=== PATIENT | female | born 1950 | race Caucasian/White ===

== ENCOUNTER 2019-12-26 08:41 | Emergency (ER) | payer MEDICARE, MEDICAID ==
[~2019-12-26] VITALS: Ht 170.2 cm; Wt 59.1 kg
[2019-12-26 09:13] LABS: HEMATOCRIT 40.2 % (37.0-47.0); HEMOGLOBIN 12.6 g/dl (12.0-16.0); IMMATURE GRANULOCYTES 0.5 % (0.0-5.0); MEAN CELL VOLUME 94.1 fL CALC (80.0-100.0); MEAN CORPUSCULAR HGB 29.5 pG CALC (26.0-32.0); MEAN CORPUSCULAR HGB CONC 31.3 g/dL CAL (32.0-36.0); NEUT# 8.21 thou/uL (2.00-7.15); RED BLOOD COUNT 4.27 mill/uL (4.20-5.60); RED CELL DISTRI WIDTH 12.5 % (11.5-15.5)
[2019-12-26 09:42] LABS: ANION GAP 12 (6-22 (CALC)); BUN 23 mg/dL (8-23); BUN/CREATININE RATIO 26 (12-20 (CALC)); CARBON DIOXIDE 26 mmol/l (22-30); CHLORIDE 105 mmol/l (95-108); CREATININE 0.9 mg/dL (0.5-1.0); GFR > 60 ML/MIN (>=60 (CALC)); GFR FOR AFR.AMER. > 60 ML/MIN (>=60 (CALC)); POTASSIUM 3.9 mmol/l (3.5-5.1); SODIUM 139 mmol/l (137-146)
[2019-12-26 10:43] VITALS: BP 146/75
== END 2019-12-26 10:55 | disposition left against medical advice (07) ==
LOC: ED 08:41
PROVIDERS: Family Medicine
DX: S72.141A Displaced intertrochanteric fracture of right femur, initial encounter for closed fracture (principal); W19.XXXA Unspecified fall, initial encounter; Z91.19 Patient's noncompliance with other medical treatment and regimen

== ENCOUNTER 2020-01-02 11:09 | Inpatient (IN) | payer MEDICARE, MEDICAID ==
[~2020-01-02] VITALS: Ht 170.2 cm; Wt 70.3 kg
--- NOTE | 2020-01-02 11:09 | NUR ---
PATIENT IMMEDIATELTY TO ROOM BY EMS. PATIENT NOT WANTING TO REMOVE HER CLOTHING OR DO ANYTHING FOR HERSELF. PATIENT REQUESTING TO HAVE ALL OF HER CLOTHING CUT OFF. PATIENT REFUSING TO LEAN FORWARD TO REMOVE SHIRT BUT WANTS IT CUT OFF. MD NOTIFIED OF PATIENT STATUS
[2020-01-02 12:08] LABS: HEMOGLOBIN 13.5 g/dl (12.0-16.0); IMMATURE GRANULOCYTES 0.9 % (0.0-5.0); MEAN CELL VOLUME 93.5 fL CALC (80.0-100.0); MEAN CORPUSCULAR HGB 29.3 pG CALC (26.0-32.0); MEAN CORPUSCULAR HGB CONC 31.4 g/dL CAL (32.0-36.0); NEUT# 12.21 thou/uL (2.00-7.15); RED BLOOD COUNT 4.6 mill/uL (4.20-5.60); RED CELL DISTRI WIDTH 12.7 % (11.5-15.5)
[2020-01-02 12:27] LABS: ANION GAP 13 (6-22 (CALC)); BUN 33 mg/dL (8-23); BUN/CREATININE RATIO 50 (12-20 (CALC)); C-REACTIVE PROTEIN 3.6 mg/dL (0-0.9); CARBON DIOXIDE 25 mmol/l (22-30); CHLORIDE 107 mmol/l (95-108); CREATININE 0.7 mg/dL (0.5-1.0); GFR > 60 ML/MIN (>=60 (CALC)); GFR FOR AFR.AMER. > 60 ML/MIN (>=60 (CALC)); POTASSIUM 3.6 mmol/l (3.5-5.1); SODIUM 142 mmol/l (137-146)
--- NOTE | 2020-01-02 12:30 | NUR ---
PT INCONTINENT MOD AMT STOOL. ANJELICA AREA CLEANSED. BED LINENS CHANGED. PT TOLERATED WITH MODERATE AMT PAIN.
[2020-01-02 13:07] LABS: URINE BLOOD DIPSTICK LARGE (NEGATIVE); URINE GLUCOSE - DIPSTICK NEGATIVE (NEGATIVE); URINE KETONE NEGATIVE (NEGATIVE); URINE LEUK ESTERASE NEGATIVE (NEGATIVE); URINE PROTEIN - DIPSTICK 100 mg/dL (NEG-TRACE); URINE SPECIFIC GRAVITY >=1.030; URINE UROBILINOGEN - DIPSTICK 0.2 E.U./dL (0.2)
[2020-01-02 13:09] LABS: URINE BILIRUBIN - DIPSTICK SMALL (NEGATIVE); URINE COLOR BROWN; URINE NITRITE - DIPSTICK POSITIVE (Negative)
[2020-01-02 13:11] LABS: URINE BACTERIA MANY hpf; URINE EPITHELIAL CELLS MODERATE EPI/hpf (0-FEW); URINE MUCUS MODERATE hpf (NONE-FEW)
--- NOTE | 2020-01-02 13:15 | NUR ---
MD AT BEDSIDE TO DISCUSS RESULTS AND POC.
--- NOTE | 2020-01-02 13:20 | NUR ---
AT BEDSIDE TO DISCUSS TRANSFER TO [facility] FOR HIP INJURY. PT REFUSED TRANSFER BUT DID AGREE TO BE ADMITTED TO THIS FACILITY FOR TREATMENT FOR UTI AND DVT.
--- NOTE | 2020-01-02 14:15 | NUR ---
COVID SWAB COLLECTED, ISOLATION PRECAUTIONS INITIATED.
--- NOTE | 2020-01-02 15:27 | NUR ---
NURSE TO NURSE REPORT CALLED TO [facility].
--- NOTE | 2020-01-02 15:45 | NUR ---
TO ROOM 262 VIA STRETCHER, TRANSFERRED TO BED WITH MAX ASSIST. PT TOLERATED WITH MODERATE AMT PAIN.
--- NOTE | 2020-01-02 15:50 | NUR ---
PT ARRIVED FROM ER VIA STRETCHER WITH STAFF. 4 PEOPLE TO TRANSFER TO THE BED. WITH SLIDER. IV SITE AND TELE MONITOR IN PLACE.
--- NOTE | 2020-01-02 16:10 | NUR ---
ASSESSMENT IS COMPLETED: IV SITE IS FREE FROM REDNESS OR EDEMA. HR IS REG,PULSES ARE STRONG X4, ABD IS SOFT WITH ACTIVE BS. BREATH SOUNDS ARE CLEAR BILATERALLY, PT IS A 2 PERSON ASSIST, HAS SCRATCHES AND A RASH ON BOTH HIPS AND THIGHS. R LEG IS SWOLLEN +3 EDEMA NOTED. WITH RED, AND DARK COLOR WARM TO THE TOUCH. PT HOLLARS WITH EVERY MOVEMENT. IS VERY STIFF. USES THE BED PATEL. HAD A PREVIOUS R HIP FX, DENIES PAIN. ONLY ON R KNEE. TELE MONITOR IN PLACE.
[2020-01-02 16:30] VITALS: BP 143/76
--- NOTE | 2020-01-02 19:10 | NUR ---
REPORT FROM [facility]. PT RESTING IN BED WITH EYES CLOSED. NO APPARENT DISTRESS NOTED. RESPIRATIONS EVEN AND UNLABORED. PURWIK IN PLACE. CALL LIGHT WITHIN REACH. WILL CONTINUE TO MONITOR.
[2020-01-02 20:00] VITALS: BP 136/72
--- NOTE | 2020-01-02 21:24 | NUR ---
PT MEDICATED ORDERED. ENCOURAGED ELEVATION OF RLE. PT REFUSED. PT C/O PAIN OFFERED PRN APAP, PT ALSO REFUSED. NO APPARENT DISTRESS NOTED. CALL LIGHT WITHIN REACH. WILL CONTINUE TO MONITOR.
--- NOTE | 2020-01-03 00:18 | NUR ---
PT RESTING IN BED WITH EYES CLOSED. NO APPARENT DISTRESS NOTED. PURWIK IN PLACE FUNCTIONING PROPERLY. ATHLETIC DIRECTOR IN PLACE. CALL LIGHT WITHIN REACH. WILL CONTINUE TO MONITOR.
--- NOTE | 2020-01-03 04:20 | NUR ---
PTS ROOM MOVED CLOSER TO NURSES STATION FOR SAFETY PRECAUTIONS. PT HAS HX OF FALLS. WILL CONTINUE TO MONITOR.
[2020-01-03 05:20] VITALS: BP 124/68
[2020-01-03 05:40] LABS: HEMATOCRIT 39.8 % (37.0-47.0); HEMOGLOBIN 12.5 g/dl (12.0-16.0); IMMATURE GRANULOCYTES 1.1 % (0.0-5.0); MEAN CELL VOLUME 94.3 fL CALC (80.0-100.0); MEAN CORPUSCULAR HGB 29.6 pG CALC (26.0-32.0); MEAN CORPUSCULAR HGB CONC 31.4 g/dL CAL (32.0-36.0); NEUT# 7.89 thou/uL (2.00-7.15); RED BLOOD COUNT 4.22 mill/uL (4.20-5.60); RED CELL DISTRI WIDTH 12.9 % (11.5-15.5)
[2020-01-03 05:53] LABS: ALBUMIN 3.5 g/dL (3.2-5.0); ALKALINE PHOSPHATASE 119 u/l (38-126); ANION GAP 11 (6-22 (CALC)); BILIRUBIN, TOTAL 0.6 mg/dL (0.0-1.4); BUN 28 mg/dL (8-23); BUN/CREATININE RATIO 46 (12-20 (CALC)); CARBON DIOXIDE 25 mmol/l (22-30); CHLORIDE 108 mmol/l (95-108); CREATININE 0.6 mg/dL (0.5-1.0); GFR > 60 ML/MIN (>=60 (CALC)); GFR FOR AFR.AMER. > 60 ML/MIN (>=60 (CALC)); POTASSIUM 3.9 mmol/l (3.5-5.1); SGOT/AST 73 u/l (9-36); SODIUM 140 mmol/l (137-146); TOTAL PROTEIN 6.6 g/dL (6.3-8.2)
--- NOTE | 2020-01-03 08:00 | NUR ---
ASSESSMENT IS COMPLETED: IV SITE IS FREE FROM REDNESS OR EDEMA. HR IS REG,PULSES ARE STRONG . +3 PITTING EDEMA NOTED ON R FOOT. TELE #[id number] BREATH SOUNDS ARE CLEAR BILATERALLY. CONTINUE TO OSBERVE AND MONITOR..
[2020-01-03 10:59] VITALS: BP 110/53
--- NOTE | 2020-01-03 12:45 | NUR ---
PT IS RELAXING IN BED ,NOT WANTING TO MOVE WITHOUT SCREAMING DUE TO PAIN. WILL NOT TAKE MEDICATIONS FOR PAIN.
[2020-01-03 14:45] VITALS: BP 115/60
--- NOTE | 2020-01-03 16:45 | NUR ---
PT REMAINS RELAXING IN BED WITH NO DISTRESS NOTED. IV SITE IS FREE FROM REDNESS OR EDEMA. ENCOURAGING TO DRINK FLUIDS DUE TO DARK URINE. PUREWICK CATHTER IN PLACE.
--- NOTE | 2020-01-03 19:25 | NUR ---
PT SITTING UPRIGHT IN BED, DENIES NEED FOR REPOSITIONING, STATES SHE IS USED TO SLEEPING SITTING UPRIGHT. CALL LIGHT IN HAND, DENIES ANY NEEDS AT THIS TIME.
[2020-01-03 20:00] VITALS: BP 116/68
--- NOTE | 2020-01-03 20:45 | NUR ---
PT SITTING IN HIGH FOWLERS POSITION IN THE BED WITH LIGHTS AND TV OFF. SHE DENIES PAIN, REPORTS FEELING MUCH BETTER THAN PREVIOUSLY. 3+PITTING EDEMA TO RLE AND REDNESS. PUREWICK IS IN PLACE, URINE OUTPUT OF 400CC OF DARK TEA COLORED URINE IN CANISTER AT THIS TIME. PT LOCX4, DENIES ANY DISTRESS AT THIS TIME. ASSESSMENT COMPLETED AND MEDICATIONS ADMINISTERED PM ORDERS PROVIDE. SNACK OFFERED/DENIED. CALL LIGHT AT SIDE AND PT ENCOURAGED TO CALL NEEDS ARISE.
[2020-01-04] VITALS: BP 117/75
--- NOTE | 2020-01-04 02:17 | NUR ---
PT SLEEPING IN HIGH FOWLERS POSITION, DID NOT AWAKE TO MY ENTERING ROOM. NO S/O DISTRESS NOTED. DOOR OPEN, LIGHTS AND TV ARE OFF.
[2020-01-04 04:00] VITALS: BP 126/76
--- NOTE | 2020-01-04 04:54 | NUR ---
PUREWICK CANISTER EMPTIED OF 550CC OF DARK LISBETH CLEAR URINE AT THIS TIME. NO S/O DISTRESS NOTED. PT SLEEPING UPRIGHT IN BED, OPENED HER EYES I ENTERED THE ROOM, BUT PROMPTLY RETURNED BACK TO SLEEP.
[2020-01-04 07:55] VITALS: BP 158/78
--- NOTE | 2020-01-04 07:55 | NUR ---
ASSESSMENT IS COMPLETED: IV SITE IS FREE FROM REDNESS OR EDEMA. HR IS REG,PULSES ARE STRONG X4, ABD IS SOFT WITH ACTIVE BS. BREATH SOUNDS ARE CLEAR,BILATERALLY,. +3 EDEMA NOTED ON R LEG AND FOOT. HAD A LARGE BM.
--- NOTE | 2020-01-04 10:15 | NUR ---
PT WAS INFORMED OF NEEDING TO HAVE SURGERY ON HER R HIP. VERBALIZED UNDERSTANDING "WOULD LIKE TO HAVE HERE" EXPLAINED RE: OTHER MD IS IN [facility]. VERBALIZED UNDERSTANDING.
[2020-01-04 10:25] VITALS: BP 129/78
--- NOTE | 2020-01-04 12:45 | NUR ---
PT IS RELAXING IN BD WITH NO DISTRESS NTED. IV SITE IS FREE FROM REDNESS OR EDEMA.
--- NOTE | 2020-01-04 16:00 | NUR ---
PT IS RESTING IN BED WITH NO DISTRESS NOTED. IV SITE IS FREE FROM REDNESS OR EDEMA.
[2020-01-04 16:05] VITALS: BP 147/79
--- NOTE | 2020-01-04 17:14 | NUR ---
SPOKE WITH SAM AT [facility]. FOR TRANSPORT ON PT. WILL BE IN APPROXIMATELY 2 HRS DUE TO ER IS TRANSPORTING NOW.
--- NOTE | 2020-01-04 17:33 | NUR ---
INFORMING [facility] RE: ETA OF PT ARRIVAL. JAE HEIN. WILL HAVE THE NEXT SHIFT GIVE REPORT ON PT DEPARTURE.
--- NOTE | 2020-01-04 18:14 | NUR ---
SPOKE WITH DR TREVIÑO, RE: PT IS REFUSING TO GO. HE SPOKE WITH PT RE: TRANSFER. PT INSISITING ON AN MRI. TO GET THE FULL PICTURE OF HER INSIDES. SHE DOESNOT FEEL COMFORTABLE ABOUT GOING TO [facility], SHE HAS LEGAL ISSUES THAT HAPPENED A WHILE BACK. ADAMASTRIDY REFUSING TO GO. DR TREVIÑO WILL CONTINUE TO CALL DR ARANDA. AND ASKED ME TO CANCEL TRANSFER.
--- NOTE | 2020-01-04 18:30 | NUR ---
CALLED [facility] AND [facility] TO CANCEL THE TRANSFER PER PTS REQUEST. PT WAS COUNCILED ON THE REASON FOR THE TRANSFER BECAUSE OF THE BREAK ON HER HIP. INQUIRED WITH STAFF AND DR. TREVIÑO " WOULD U WANT TO HAVE TO TRAVEL 50 MILES TO ANOTHER HOSPITAL BECAUSE OF THE BLOOD CLOT?" EXPLAINED IF IT WAS NECESSARY THEN YES. STOPPED THE TRANSFER PER DR TREVIÑO AND THE PT.
--- NOTE | 2020-01-04 19:50 | NUR ---
PT AWAKE RESTING IN BED. PT IS ALERT AND ORIENTED X4. RESP EVEN AND UNLABORED. SKIN WARM AND DRY. LUNGS CLEAR BILAT. ABD SOFT AND NONDISTENDED WITH BOWEL SOUNDS PRESENT. +2 RT LOWER EXT EDEMA NOTED. PEDAL PULSES PALPATED BILAT. RT LOWER EXT IS RED AND SLIGHTLY WARM TO TOUCH . PT DENIES ANY PAIN OR DISCOMFORT. TELE SR 86 WITH PVC'S PER E.D. PT ASSISTED WITH REPOSITIONING. FREQUENT ROUNDS MADE. CALL BEL WITHIN REACH.
[2020-01-04 21:00] VITALS: BP 158/88
--- NOTE | 2020-01-04 22:07 | NUR ---
[facility] CALLING INQUIRING ABOUT PT PLANNED TRASNFER, INFORMED THEM OF PT'S REFUSAL A THIS TIME, SHE (JOEY) WITHDREW THE TRANSFER.
--- NOTE | 2020-01-04 22:15 | NUR ---
PT AWAKE RESTING IN BED. RESP EVEN AND UNLABORED. NO DISTRESS NOTED. HEPLOCK PATENT. DENIES ANY DISCOMFORT. FREQUENT ROUNDS MADE. CALL LUI WITHIN REACH.
[2020-01-05] VITALS (7 sets, daily range): BP systolic 131–158; BP diastolic 74–84
--- NOTE | 2020-01-05 00:30 | NUR ---
RESTING IN BED WITH EYES CLOSED. RESP EVEN AND UNLABORED. NO DISTRESS NOTED. CALL LUI WITHIN REACH.
--- NOTE | 2020-01-05 04:30 | NUR ---
PT AWAKE RESTING IN BED. RESP EVEN AND UNLABORD. HEPLOCK IS PATENT. PUREWICK IN PLACE DRAINING CLEAR LISBETH URINE. PT DENIES ANY DISCOMFORT. ASSISTED WITH REPOSITIONING. TELE INTACT. FREQUENT ROUNDS MADE. CALL LUI WITHIN REACH.
--- NOTE | 2020-01-05 08:25 | NUR ---
ASSESSMENT IS COMPLETED: IV SITE IS FREE FROM REDNESS OR EDEMA. HR IS REG,PULSES ARE STRONG X4, ABD IS SOFT WITH ACTIV EBS. BREATH SOUNDS ARE CLEAR BILATERALLY. + 2 PITTING EDEMA NOTED ON R FOOT. IS LOOKING BETTER TODAY. PT INSISTING ON GETTING AN MRI. TELE MONITOR # [id number] READING STT WITH PVC AT 94
--- NOTE | 2020-01-05 11:52 | NUR ---
PT C/O PUREWICK NOT WORKING WELL. INFORMED THAT IT IS WORKING HER URINE IS BETTER. LISBETH VS BROWN,
--- NOTE | 2020-01-05 12:40 | NUR ---
PT IS RELAXNG IN BED AND STATED" I DONT THINK THE PUREW ICK IS WORKING , DUE TO NOT HEARING THE SUCTION " INQUIRED IF HER PAD WAS WET. STATED "NO" THEN THE PUREWICK IS WORKING. CONTINUE TO OSBERVE AND MONITOR.
--- NOTE | 2020-01-05 15:43 | NUR ---
SPOKE WITH PT RE: URINE. LOOKING BETTER . NOT BROWN WHEN SHE CAME IN. MORE OUTPUT.
--- NOTE | 2020-01-05 16:50 | NUR ---
PT IS RELAXING IN BED HAS A BETTER OUTPUT WITH URINE TODAY. IV SITE IS FREE FROM REDNESS OR EDEMA.
--- NOTE | 2020-01-05 19:56 | NUR ---
PT RESTING IN BED, NO SIGNS OF DISTRESS NOTED, RESP EVEN AND UNLABORED. PT ALERT AND ORIENTED X3, DISCUSSED POC, VERBALIZED UNDERSTANDING. NOTED ABRASION TO NOSE, PT STATES FROM SKIN BX YRS AGO, PT HAS PURE WICK IN PLACE, ASSESSMENT COMPLETED, CALL LIGHT IN REACH,CONTINUE TO MONITOR.
[2020-01-06] VITALS: BP 137/81
--- NOTE | 2020-01-06 | NUR ---
PT RESTING IN BED, VITALS OBTAINED, PT VOICES NO NEEDS OR COMPLAINTS AT THIS TIME. CALL LIGHT IN REACH,CONTINUE TO MONITOR.
[2020-01-06 04:00] VITALS: BP 143/85
--- NOTE | 2020-01-06 04:00 | NUR ---
PT RESTING IN BED NO SIGNS OF DISTRESS NOTED, RESP EVEN AND UNLABORED. PT VOICES NO NEEDS OR COMPLAINTS AT THIS TIME. CALL LIGHT IN REACH,CONTINUE TO MONITOR.
--- NOTE | 2020-01-06 07:00 | NUR ---
REPORT RECEIVED FROM JULES ATWOOD.
[2020-01-06 08:59] VITALS: BP 112/63
--- NOTE | 2020-01-06 09:00 | NUR ---
PT RESTING IN SEMI FOWLERS POSITION,A&O X3;VS OBTAINED AND ASSESSMENT COMPLETED;PT DENIES ANY CURRENT PAIN OR DISCOMFORTS,PAIN SCALE AND REPORTING EDUCATED;RESPIRATIONS EVEN AND UNLABORED ON RA,CLEAR LUNG SOUNDS;ABDOMEN SOFT ON PALPATION AND ACTIVE IN ALL 4 QUADRANTS;WEAK PEDAL PULSES;PT DX WITH RT FEMORAL NECK FRACTURE, RIGHT LEG REDDENED AND SWOLLEN;TELE MONITORING IN PLACE;#20G TO RAC FLUSHED AND PATENT,ABX STARTED AT THIS TIME PER ORDER;PUREWICK CATHETER IN PLACE DRAINING YELLOW URINE WITH EASE;PT DENIES ANY ADDITIONAL NEEDS AND IS ENCOURAGED TO CALL FOR ASSISTANCE IF NEEDED;FALL PRECAUTIONS IN PLACE WITH BED IN THE LOWEST POSITION AND CALL LIGHT IN REACH;WILL CONTINUE TO MONITOR
--- NOTE | 2020-01-06 11:45 | NUR ---
SHARDA SNOWDEN, RISK MANAGEMENT AT BEDSIDE
[2020-01-06 12:00] VITALS: BP 130/84
--- NOTE | 2020-01-06 12:30 | NUR ---
PT RESTING IN SEMI FOWLERS POSITION;RESPIRATIONS EVEN AND UNLABORED ON RA;PT DENIES ANY CURRENT PAIN OR DISCOMFORTS;IV SITE REMAINS PATENT;TELE MONITORING IN PLACE;PT ENCOURAGED TO CALL FOR ASSISTANCE IF NEEDED;FALL PRECAUTIONS IN PLACE WITH BED IN THE LOWEST POSITION AND CALL LIGHT IN REACH;WILL CONTINUE TO MONITOR
[2020-01-06] MEDS ORDERED: ELIQUIS5 MG PO (14:18)
[2020-01-06 15:56] VITALS: BP 126/78
--- NOTE | 2020-01-06 15:56 | NUR ---
PT DISCHARGED AT THIS TIME TO [facility] VIA STRETCHER ACCOMPANIED BY [facility].IV SITE REMOVED WITH CATHETER INTACT.ALL BELONGINGS LEFT WITH PT.
--- NOTE | 2020-01-06 16:02 | NUR ---
REPORT CALLED TO ANGEL LUIS GARCIA AT [facility] AT THIS TIME.
== END 2020-01-06 15:56 | DRG 299 ==
LOC: ED 11:09 → ED-I 13:44 → ED 14:01 → MS2 14:02
PROVIDERS: Family Medicine; Nurse Practitioner Family; ADMIT Internal Medicine; ATTEND Internal Medicine
DX: I82.411 Acute embolism and thrombosis of right femoral vein (principal); S72.001A Fracture of unspecified part of neck of right femur, initial encounter for closed fracture; N39.0 Urinary tract infection, site not specified; I82.4Z1 Acute embolism and thrombosis of unspecified deep veins of right distal lower extremity; B96.20 Unspecified Escherichia coli [E. coli] as the cause of diseases classified elsewhere; W19.XXXA Unspecified fall, initial encounter; Z91.19 Patient's noncompliance with other medical treatment and regimen; Z20.828 Contact with and (suspected) exposure to other viral communicable diseases
CPT/HCPCS: J1650

== ENCOUNTER 2020-01-22 14:40 | Inpatient (IN) | payer MEDICARE, MEDICAID ==
[~2020-01-22] VITALS: Ht 170.2 cm; Wt 66.8 kg
[~2020-01-22 14:40] MED LIST: ELIQUIS5 MG PO
[2020-01-27] VITALS (10 sets, daily range): BP systolic 79–116; BP diastolic 46–56
--- NOTE | 2020-01-27 16:43 | NUR ---
PT ARRIVED TO [facility] ROOM 262 VIA BED ACCOMPAINED BY OR STAFF.INTRODUCED SELF TO PT AND DISCUSSED POC. PT IS A/O X3 BUT VERY DROWSY.VITALS AND ASSESSMENT COMPLETED. BP 129/62, HR 61, O2 98% ON 2L NC. RESPIRAITONS ARE EVEN AND UNLABORED WITH NO DISTRESS NOTED. LUNG SOUNDS ARE DIMINISHED. HEART RHYTHM IS NORMAL. BOWEL SOUNDS ARE HYPOACTIVE, LAST RPORTED BM IS UNKNOWN. RADIAL AND PEDAL PUSLES STRONG.SCD APPLIED TO LEFT LEG. #20G IN LFA RUNNING WITH LR AT 100ML/HR, SITE APPEARS HEALTHY AND PATENT. PT COMPLAINS OF 7/10 PAIN IN RIGHT HIP. PT POST OP TOTAL RIGHT HIP ARTHROPLASTY. DRESSING CDI AT THIS TIME. ICE APPLIED PER ORDER. ABDUCTION PILLOW IN PLACE. SKIN IS WARM AND DRY WITH NO BREAKDOWN NOTED. TRACE EDEMA LOCATED TO BILATERAL LOWER EXTREMITIES. WHEN KITCHEN AIDE COMPLETING ADMISION. PT CONTINUED TO FALL ASLEEP. PT DENIES ANY ALLERGIES, ALLERGY BAND APPLIED.I.S AT BEDSIDE. PT ORIENTED TO ROOM AND CALL LIGHT.ALL SAFETY PRECAUTIONS ARE IN PLACE WITH CALL LIGHT IN REACH. WILL CONTINUE TO MONITOR
--- NOTE | 2020-01-27 16:50 | NUR ---
PURE WHICK APPLIED. PT TOELRATING WELL.
--- NOTE | 2020-01-27 19:00 | NUR ---
REPORT RECEIVED FROM Walter CADET LPN, CARE OF PT ASSUMED AT THIS TIME.
--- NOTE | 2020-01-27 20:05 | NUR ---
PT SITTING UP IN BED, BLE ELEVATED. NIBP AT 192: 74/46mmHg MAP(57). PT IS DROWSY BUT WAKES EASILY TO VERBAL STIMULI AND ABLE TO ANSWERS QUESTIONS APPROPRIATELY. PHYSICAL ASSESMENT COMPLETE. R-HIP DRESSING CLEAN, DRY, AND INTACT. ICE PACK OVER DRESSING. WEDGE LEG ABDUCTION PILLOW IN PLACE BETWEEN LEGS. BLE + SENSATION, CIRCULATION, MOVEMENT. SCD TO LLE. SCHEDULED MEDICATIONS ADMINISTERED, SEE E-MAR. PT REPORTS ACHING PAIN TO R-HIP 04/22, DECLINES PRN ANALGESIC. PT ASSISTED TO REPOSITION FOR COMFORT. PLAN OF CARE REVIEWED. PT VERBALIZES UNDERSTANDING AND DENIES QUESTIONS. PT REQUEST ICE WATER BE REPLACED WITH ROOM TEMP WATER, DENIES FURTHER NEEDS. CALL LUI WITHIN REACH, AGREES TO CALL PRN.
--- NOTE | 2020-01-27 21:30 | NUR ---
NIBP RECHECK 94/50mmHg, MAP(65). PT DROWSY BUT EASILY ROUSABLE AND SPEECH APPROPRIATE. SEROQUEL AND STOOL SOFTENER HELD PER PTS REQUEST. DENIES FURTHER NEEDS AT THIS TIME. CALL LUI WITHIN REACH, AGREES TO CALL PRN.
--- NOTE | 2020-01-28 01:30 | NUR ---
PT APPEARS TO BE SLEEPING COMFORTABLY, LAYING IN BED WITH EYES CLOSED. NO APPARENT DISTRESS, RESPIRATIONS REGULAR AND UNLABORED. CALL LUI REMAINS WITHIN REACH.
[2020-01-28 04:00] VITALS: BP 83/53
[2020-01-28 04:52] LABS: HEMATOCRIT 34.1 % (37.0-47.0); HEMOGLOBIN 10.7 g/dl (12.0-16.0)
[2020-01-28 05:06] LABS: BUN 19 mg/dL (8-23); BUN/CREATININE RATIO 27 (12-20 (CALC)); CARBON DIOXIDE 27 mmol/l (22-30); CHLORIDE 105 mmol/l (95-108); CREATININE 0.7 mg/dL (0.5-1.0); GFR > 60 ML/MIN (>=60 (CALC)); GFR FOR AFR.AMER. > 60 ML/MIN (>=60 (CALC)); SODIUM 135 mmol/l (137-146)
--- NOTE | 2020-01-28 05:09 | NUR ---
PT WITH NO URINE OUTPUT, BLADDER SCAN REVEALS 487ML RESIDUAL URINE. PT DENIES FEELINGS OF URGENCY, PRESSURE, OR DISCOMFORT. PT REFUSES JOINER CATHETER INSERTION. STATES "I DONT WANT THAT, I'LL PEE EVENTUALLY. I PEE A LOT"
[2020-01-28 05:10] LABS: ANION GAP 8 (6-22 (CALC)); POTASSIUM 5.2 mmol/l (3.5-5.1)
--- NOTE | 2020-01-28 06:06 | NUR ---
PT VOIDING SMALL AMOUNTS, STATES "IM ALREADY GOING A LITTLE, BUT I KNOW MORE IS COMING", CON'T TO MONITOR OUTPUT.
--- NOTE | 2020-01-28 07:01 | NUR ---
REPORT RECEIVED FROM ANGEL LUIS OCONNOR. PT RESTING IN BED, NO S/S OF DISTRESS AT THIS TIME. SAFETY PRECAUTIONS IN PLACE. WILL CONITNUE TO MONITOR.
--- NOTE | 2020-01-28 08:11 | NUR ---
PT RESTING IN BED, ALERT AND ORIENTED. RESPIRATIONS ARE EVEN AND UNLABORED ON O2 @ 2L NC. LUNGS SOUND CLEAR. PEDAL PULSES ARE STONG. PT REPORTS HAVING PAIN WHEN SHE MOVES BUT AT THIS TIME IS NOT IN PAIN. SAFETY PRECAUTIONS IN PLACE. WILL CONTINUE TO MONITOR.
[2020-01-28 08:17] VITALS: BP 91/53
--- NOTE | 2020-01-28 11:50 | NUR ---
PATIENT ADAMANTLY REFUSED TO BE EVALUATED TODAY STATING THAT SHE DOES NOT WANT TO MOVE TODAY ESPECIALLY SHE JUST HAD HIP SURGERY. PT EDUCATED PATIENT ON HIP PROTOCOL WHERE WE NEED TO STAND AND WALK HER AFTER SURGERY. HOWEVER, SHE STILL ADAMANTLY REFUSED AND REQUESTED TO BE EVALUATED TOMORROW INSTEAD.
--- NOTE | 2020-01-28 12:35 | NUR ---
PT RESTING IN BED, NO S/S OF DISTRESS AT THIS TIME. SAFETY PRECAUTIONS IN PLACE. WILL CONTINUE TO MONITOR.
[2020-01-28 16:00] VITALS: BP 114/62
--- NOTE | 2020-01-28 16:10 | NUR ---
PT RESTING IN BED, WITH HEADBAND PULLED OVER HER NOSE, EYES CLOSED, PT APPEARS TO BE SLEEPING. RESPIRATIONS ARE EVEN AND UNLABORED, NO S/S OF DISTRESS AT THIS TIME. WILL CONTINUE TO MONITOR.
[2020-01-28 19:30] VITALS: BP 114/66
--- NOTE | 2020-01-28 20:40 | NUR ---
PT SITTING UP IN BED, PHYSICAL ASSESMENT COMPLETE. R-HIP DRESSING CLEAN, DRY, AND INTACT. ICE PACK OVER DRESSING. WEDGE LEG ABDUCTION PILLOW IN PLACE BETWEEN LEGS. BLE + SENSATION, CIRCULATION, MOVEMENT. SCD TO LLE. SCHEDULED MEDICATIONS ADMINISTERED, SEE E-MAR. PT REPORTS ACHING PAIN TO R-HIP 04/22, DECLINES PRN ANALGESIC. PT ASSISTED TO REPOSITION FOR COMFORT. PLAN OF CARE REVIEWED. PT VERBALIZES UNDERSTANDING AND DENIES QUESTIONS. PT REQUEST ICE WATER BE REPLACED WITH ROOM TEMP WATER, DENIES FURTHER NEEDS. CALL LUI WITHIN REACH, AGREES TO CALL PRN.
--- NOTE | 2020-01-29 00:40 | NUR ---
PT APPEARS TO BE SLEEPING COMFORTABLY, LAYING IN BED WITH EYES CLOSED. NO APPARENT DISTRESS, RESPIRATIONS REGULAR AND UNLABORED. CALL LUI REMAINS WITHIN REACH.
[2020-01-29 04:00] VITALS: BP 119/58
--- NOTE | 2020-01-29 05:44 | NUR ---
PT APPEARS TO BE SLEEPING COMFORTABLY, LAYING IN BED WITH EYES CLOSED. NO APPARENT DISTRESS, RESPIRATIONS REGULAR AND UNLABORED. CALL LUI REMAINS WITHIN REACH.
[2020-01-29 06:35] LABS: HEMATOCRIT 29.3 % (37.0-47.0); HEMOGLOBIN 9.3 g/dl (12.0-16.0); MEAN CELL VOLUME 91.8 fL CALC (80.0-100.0); MEAN CORPUSCULAR HGB 29.2 pG CALC (26.0-32.0); MEAN CORPUSCULAR HGB CONC 31.7 g/dL CAL (32.0-36.0); RED BLOOD COUNT 3.19 mill/uL (4.20-5.60); RED CELL DISTRI WIDTH 13.2 % (11.5-15.5)
[2020-01-29 06:58] LABS: ANION GAP 6 (6-22 (CALC)); BUN 8 mg/dL (8-23); BUN/CREATININE RATIO 16 (12-20 (CALC)); CARBON DIOXIDE 26 mmol/l (22-30); CHLORIDE 105 mmol/l (95-108); CREATININE 0.5 mg/dL (0.5-1.0); GFR > 60 ML/MIN (>=60 (CALC)); GFR FOR AFR.AMER. > 60 ML/MIN (>=60 (CALC)); MAGNESIUM 1.9 mg/dL (1.6-2.3); SODIUM 133 mmol/l (137-146)
--- NOTE | 2020-01-29 07:02 | NUR ---
REPORT RECEIVED FROM ANGEL LUIS OCONNOR. PT RESTING IN BED. NO S/S OF DISTRESS AT THIS TIME. SAFETY PRECAUTIONS IN PLACE. WILL CONTINUE TO MONTIOR.
[2020-01-29 07:04] LABS: POTASSIUM 3.8 mmol/l (3.5-5.1)
[2020-01-29 08:09] VITALS: BP 115/64
--- NOTE | 2020-01-29 08:09 | NUR ---
PT RESTING IN BED, ALERT AND ORIENTED. RESPIRATIONS ARE EVEN AND UNLABORED ON RA. LUNGS SOUND CLEAR. PEDAL PULSES ARE STRONG. PT DENIES ANY PAIN OR DISCOMFORT AT THIS TIME. SAFETY PRECAUTIONS IN PLACE. WILL CONTINUE TO MONITOR.
[2020-01-29 10:16] LABS: HEMATOCRIT 29.9 % (37.0-47.0); HEMOGLOBIN 9.4 g/dl (12.0-16.0)
--- NOTE | 2020-01-29 11:44 | NUR ---
PT RESTING IN BED. ALERT AND ORIENTED. DRESSING CHANGED PER MD ORDERS. PT TOLERATED WELL. PT REPOSITIONED. ENCOURAGED PT TO USE IS. SAFETY PRECAUTIONS IN PLACE. WILL CONTINUE TO MONITOR.
[2020-01-29 12:46] VITALS: BP 140/59
[2020-01-29 16:00] VITALS: BP 110/71
--- NOTE | 2020-01-29 16:37 | NUR ---
PT RESTING IN BED. NO S/S OF DISTRESS AT THIS TIME. SAFETY PRECAUTIONS IN PLACE. WILL CONTINUE TO MONITOR.
[2020-01-29 19:02] VITALS: BP 128/62
--- NOTE | 2020-01-29 20:02 | NUR ---
PHYSICAL ASSESMENT COMPLETE. PT CURRENTLY DENIES PAIN OR DISCOMFORT. PT REFUSED HER ELIQUIS BECAUSE THE TAB IS NOT THE SAME COLOR THE ONE SHE TAKES AT HOME. PT REFUSED THE SEROQUEL BECAUSE SHE DOES NOT TAKE THIS MEDICATION AT HOME. PT DENIES ANY NEEDS AT THIS TIME. PLAN OF CARE REVIEWED, PT DENIES QUESTIONS, VERBALIZES UNDERSTANDING. ITEMS WITHIN REACH, BED LOCKED IN LOW POSITION W/ BEDRAILS UP X2. CALL LUI WITHIN REACH, AGREES TO CALL PRN.
--- NOTE | 2020-01-30 00:03 | NUR ---
PT LAYING IN BED WITH EYES CLOSED, APPEARS TO BE SLEEPING, APPEARS COMFORTABLE AND IN NO DISTRESS. RESPIRATIONS REGULAR AND UNLABORED. ITEMS REMAIN WITHIN REACH, CALL LUI REMAINS WITHIN REACH. BED REMAINS LOCKED AND IN LOW POSITION WITH BEDRAILS UP X2. WILL CONTINUE TO MONITOR.
[2020-01-30 03:45] VITALS: BP 102/64
--- NOTE | 2020-01-30 03:51 | NUR ---
PT RESTING IN BED, NO SIGNS OF DISTRESS NOTED, RESP EVEN AND UNLABORED. PT VOICES NO NEEDS OR COMPLAINTS AT THIS TIME. CALL LIGHT IN REACH, CONTINUE TO MONITOR.
--- NOTE | 2020-01-30 07:10 | NUR ---
REPORT RECEIVED FROM ANGEL LUIS LINDSAY. PT RESTING IN BED. ALERT AND ORIENTED. RESPIRATIONS ARE EVEN AND UNLABORED ON RA. LUNGS SOUND CLEAR. PEDAL PULSES ARE WEAK. PT DENIES ANY PAIN OR DISCOMFORT AT THIS TIME. SAFETY PRECAUTIONS IN PLACE. WILL CONTINUE TO MONITOR.
[2020-01-30 08:16] VITALS: BP 107/81
[2020-01-30 10:54] LABS: HEMATOCRIT 28.3 % (37.0-47.0); HEMOGLOBIN 8.9 g/dl (12.0-16.0)
--- NOTE | 2020-01-30 11:55 | NUR ---
PT RESTING IN BED, NO S/S OF DISTRESS AT THIS TIME. SAFETY PRECAUTIONS IN PLACE. WILL CONTINUE TO MONITOR.
--- NOTE | 2020-01-30 12:43 | NUR ---
pt was to be seen for gait training however refused stating she did not feel well enough to walk due to diarrhea.
[2020-01-30 14:40] VITALS: BP 121/62
--- NOTE | 2020-01-30 16:00 | NUR ---
PT ASSISTED ONTO BED PATEL TO ATTEMPT TO HAVE A BM, CALL LUI WITHIN REACH WILL CONTINUE TO MONITOR.
--- NOTE | 2020-01-30 16:05 | NUR ---
PM note Attempted to see patient. She was working with vice president of nursing. I attempted to assist with her bed mobility. The patient refused to follow any instructions. She grabbed her hip as if it was in pain and would not let go. I assured her the surgery was a solid one and that she could roll to and from the hip. She refused to roll, yet complained vehemently that her sheets were wrinkled underneath her. I asked her to help transfer and participate with PT. She stated very plainly no and " I have the right to refuse". The vice president of nursing and myself both explained the detrimental effects of immobility. She became increasingly agitated and stated she had the right to refuse.
[2020-01-30 19:10] VITALS: BP 158/83
--- NOTE | 2020-01-30 20:01 | NUR ---
PHYSICAL ASSESMENT COMPLETE. PT CURRENTLY DENIES PAIN OR DISCOMFORT. SCHEDULED MEDICATIONS AND PRN MEDICATION ADMINISTERED, SEE E-MAR. PT REFUSED SCHEDULE SEROQUEL. PT RUNNING A TEMPERATUR OF 100. F. WILL CONTINUE TO MONITOR. PT DENIES ANY NEEDS AT THIS TIME. PLAN OF CARE REVIEWED, PT DENIES QUESTIONS, VERBALIZES UNDERSTANDING. ITEMS WITHIN REACH, BED LOCKED IN LOW POSITION W/ BEDRAILS UP X2. CALL LUI WITHIN REACH, AGREES TO CALL PRN.
--- NOTE | 2020-01-30 22:29 | NUR ---
REEVALUATED PT TEMPERATURE. 97.9 F WILL CONTINUE TO MONITOR.
[2020-01-31 03:54] VITALS: BP 155/83
--- NOTE | 2020-01-31 04:14 | NUR ---
PT RESTING IN BED, NO S/S OF DISTRESS AT THIS TIME. SAFETY PRECAUTIONS IN PLACE. WILL CONTINUE TO MONITOR.
[2020-01-31 07:45] VITALS: BP 163/84
--- NOTE | 2020-01-31 07:45 | NUR ---
ASSESSMENT IS COMPLETED: IV SITE IS FREE FROM REDNESS OR EDEMA. HR IS REG,PULSES ARE STRONG X4, ABD IS SOFT WITH ACTIVE BS. BREATH SOUNDS ARE CLEAR AND DIMISHED. DRESSING ON R HIP HAS SMALL AMOUNT OF DRAINAGE NOTED. WEDGE IN PLACE.
--- NOTE | 2020-01-31 11:25 | NUR ---
PT. note Patient refused therapy
--- NOTE | 2020-01-31 11:37 | NUR ---
Attempted to see patient x 2 this AM Immediately when I walk in the room, she refuses. I asked if she would at least do bed exercises and she complied for a couple of reps only. I explained the detriments of immobility but she continues adamantly refusing stating it is her right.
--- NOTE | 2020-01-31 12:00 | NUR ---
PT IS RELAXING IN BED WITH NO DISTRESS NOTED. IV SITE IS FREE FROM REDNESS OR EDEMA.
[2020-01-31 15:20] VITALS: BP 135/69
--- NOTE | 2020-01-31 16:10 | NUR ---
PT IS SITTING UP IN BED WITH NO DISTRESS NOTED. IV SITE IS FREE FROM REDNESS OR EDMEA.
[2020-01-31 20:00] VITALS: BP 119/64
--- NOTE | 2020-01-31 20:40 | NUR ---
PT APPEARS TO BE SLEEPING COMFORTABLY, LAYING IN BED WITH EYES CLOSED, NO APPARENT DISTRESS, RESPIRATIONS REGULAR AND UNLABORED. PT WAKES EASILY TO VERBAL STIMULI. PHYSICAL ASSESMENT COMPLETE. DRESSING TO R-HIP REMOVED. SMALL AMOUNT OF DRIED BLOOD AND SEROUS FLUID ON SOILED DRESSING. INCISION IS INTACT WITH RACHNA, DRY AND FREE OF ACTIVE DRAINAGE, FREE OF ERYTHEMA, EDEMA, OR ANY SIGNS OF INFECTION/ INFLAMMATION. FOLDED ABD PAD PLACEDD OVER INCISION AND SECURED WITH PAPER TAPE. PT TOLERATED DRESSING CHANGE WELL. PT DENIES PAIN/DECLINES OFFER FOR ANY PRN ANALGESIC. PT DENIES NEEDS AT THIS TIME. CALL LUI WITHIN REACH, AGREES TO CALL PRN.
--- NOTE | 2020-02-01 00:40 | NUR ---
PT APPEARS TO BE SLEEPING COMFORTABLY, LAYING IN BED WITH EYES CLOSED. NO APPARENT DISTRESS, RESPIRATIONS REGULAR AND UNLABORED. CALL LUI REMAINS WITHIN REACH.
[2020-02-01 04:00] VITALS: BP 121/64
[2020-02-01 05:03] LABS: HEMATOCRIT 27.3 % (37.0-47.0); HEMOGLOBIN 8.6 g/dl (12.0-16.0); MEAN CELL VOLUME 92.5 fL CALC (80.0-100.0); MEAN CORPUSCULAR HGB 29.2 pG CALC (26.0-32.0); MEAN CORPUSCULAR HGB CONC 31.5 g/dL CAL (32.0-36.0); RED BLOOD COUNT 2.95 mill/uL (4.20-5.60); RED CELL DISTRI WIDTH 13.2 % (11.5-15.5)
--- NOTE | 2020-02-01 05:11 | NUR ---
PT APPEARS TO BE SLEEPING COMFORTABLY, LAYING IN BED WITH EYES CLOSED. NO APPARENT DISTRESS, RESPIRATIONS REGULAR AND UNLABORED. CALL LUI REMAINS WITHIN REACH.
[2020-02-01 05:22] LABS: ANION GAP 7 (6-22 (CALC)); BUN 6 mg/dL (8-23); BUN/CREATININE RATIO 13 (12-20 (CALC)); CARBON DIOXIDE 29 mmol/l (22-30); CHLORIDE 105 mmol/l (95-108); CREATININE 0.4 mg/dL (0.5-1.0); GFR > 60 ML/MIN (>=60 (CALC)); GFR FOR AFR.AMER. > 60 ML/MIN (>=60 (CALC)); MAGNESIUM 1.6 mg/dL (1.6-2.3); POTASSIUM 3.2 mmol/l (3.5-5.1); SODIUM 137 mmol/l (137-146)
--- NOTE | 2020-02-01 05:37 | NUR ---
IV SITE DUE TO CHANGE, PT REFUSES SITE CHANGE, STATES "IM BEING DISCHARGED SOON"
[2020-02-01 07:45] VITALS: BP 117/58
--- NOTE | 2020-02-01 07:45 | NUR ---
ASSESSMENT IS COMPLETED: IV SITE IS FREE FROM REDNESS OR EDEMA. HR IS REG,PULSES ARE STRONG X4, ABD IS SOFT WITH ACTIVE BS. BREATH SOUNDS ARE CLEAR,BILATERALLY. DRESSING ON R HIP IS CDI. CONTINUE TO OBSERVE AND MONITOR.
--- NOTE | 2020-02-01 10:00 | NUR ---
DR CAMPBELL IN TO VISIT WITH PT.
--- NOTE | 2020-02-01 11:39 | NUR ---
HAYDEE WITH ROUTINE CARE ON HER IV SITE FLUSHING WELL
--- NOTE | 2020-02-01 12:15 | NUR ---
PT IS RELAXING IN BED WITH NO DISTRESS NOTED. IV SITE IS FREE FROM REDNESS OR EDEMA. CONTINUE TO OSBERVE AND MONITOR. ENCOURAGING PT TO GET IN THE CHAIR, AND OR THE BSC. STATING "YES" BUT WILL NOT MOVE
[2020-02-01 15:00] VITALS: BP 111/66
--- NOTE | 2020-02-01 16:00 | NUR ---
PT IS RELAXING IN BED WITH NO DISTRESS NOTED. IV SIT EIS FREE FROM REDNESS OR EDMEA.
[2020-02-01 20:00] VITALS: BP 116/95
--- NOTE | 2020-02-01 20:30 | NUR ---
PT APPEARS TO BE SLEEPING COMFORTABLY, LAYING IN BED WITH EYES CLOSED, NO APPARENT DISTRESS, RESPIRATIONS REGULAR AND UNLABORED. PT WAKES EASILY TO VERBAL STIMULI. PHYSICAL ASSESMENT COMPLETE. DRESSING TO R-HIP REMOVED. SMALL AMOUNT OF DRIED SEROUS FLUID ON SOILED DRESSING. INCISION IS INTACT WITH RACHNA, DRY AND FREE OF ACTIVE DRAINAGE, FREE OF ERYTHEMA, EDEMA, OR ANY SIGNS OF INFECTION/ INFLAMMATION. FOLDED ABD PAD PLACEDD OVER INCISION AND SECURED WITH PAPER TAPE. PT TOLERATED DRESSING CHANGE WELL. PT HAS A LOT OF DIFFICULTY AND DISCOMFORT TURNING WITH ASSISTANCE AND IS UNABLE TO TURN FOR DRESSING CHANGE INDEPENDENTLY. PT DENIES PAIN/DECLINES OFFER FOR ANY PRN ANALGESIC. PT DENIES NEEDS AT THIS TIME. CALL [facility] WITHIN REACH, AGREES TO CALL PRN.
--- NOTE | 2020-02-02 00:14 | NUR ---
PT SITTING UP IN BED, READING BOOK. DENIES NEEDS AT THIS TIME. CALL [facility] WITHIN REACH, AGREES TO CALL PRN.
[2020-02-02 04:00] VITALS: BP 114/68
--- NOTE | 2020-02-02 04:52 | NUR ---
PT APPEARS TO BE SLEEPING COMFORTABLY, LAYING IN BED WITH EYES CLOSED. NO APPARENT DISTRESS, RESPIRATIONS REGULAR AND UNLABORED. CALL LUI REMAINS WITHIN REACH.
[2020-02-02 05:31] LABS: HEMATOCRIT 27.1 % (37.0-47.0); HEMOGLOBIN 8.5 g/dl (12.0-16.0); MEAN CELL VOLUME 93.4 fL CALC (80.0-100.0); MEAN CORPUSCULAR HGB 29.3 pG CALC (26.0-32.0); MEAN CORPUSCULAR HGB CONC 31.4 g/dL CAL (32.0-36.0); RED BLOOD COUNT 2.9 mill/uL (4.20-5.60); RED CELL DISTRI WIDTH 13.2 % (11.5-15.5)
[2020-02-02 05:44] LABS: ANION GAP 6 (6-22 (CALC)); BUN 8 mg/dL (8-23); BUN/CREATININE RATIO 16 (12-20 (CALC)); CARBON DIOXIDE 30 mmol/l (22-30); CHLORIDE 105 mmol/l (95-108); CREATININE 0.5 mg/dL (0.5-1.0); GFR > 60 ML/MIN (>=60 (CALC)); GFR FOR AFR.AMER. > 60 ML/MIN (>=60 (CALC)); POTASSIUM 3.9 mmol/l (3.5-5.1); SODIUM 137 mmol/l (137-146)
[2020-02-02 08:10] VITALS: BP 121/58
--- NOTE | 2020-02-02 08:10 | NUR ---
ASSESSMENT IS COMPLTED: IV SITE IS FREE FROM REDNESS OR EDEMA. HR IS REG, PULSES ARE STRONG X4, ABD IS SOFT WITH ACTIVE BS. BREATH SOUNDS ARE CLEAR, BILATERALLY, DRESSING ON R HIP IS CDI. ENCOURAGING PT TO GET OUT OF BED,. VERBALIZED UNDERSTANDING.
--- NOTE | 2020-02-02 10:10 | NUR ---
PT IS SITTING UP IN THE CHAIR, WITH ASSISTANCE FROM AIDES AND WALKER.
--- NOTE | 2020-02-02 12:20 | NUR ---
PT IS RELAXING IN BED WITH NO DISTRESS NOTED.
[2020-02-02 14:00] VITALS: BP 101/59
--- NOTE | 2020-02-02 16:15 | NUR ---
PT IS RELAXING IN THE CHAIR. STATED" I DIDN'T HAVE TOO MUCH TROUBLE GETTING TO THE CHAIR".
--- NOTE | 2020-02-02 17:05 | NUR ---
PT REQUESTED TO GO BACK TO BED , PT HAS BEEN IN THE CHAIR ALL MORNING AND AFTERNOON.
[2020-02-02 20:00] VITALS: BP 110/61
--- NOTE | 2020-02-03 | NUR ---
PT APPEARS TO BE SLEEPING COMFORTABLY, LAYING IN BED WITH EYES CLOSED. NO APPARENT DISTRESS, RESPIRATIONS REGULAR AND UNLABORED. CALL LUI REMAINS WITHIN REACH.
[2020-02-03 04:00] VITALS: BP 112/71
--- NOTE | 2020-02-03 04:00 | NUR ---
PT APPEARS TO BE SLEEPING COMFORTABLY, LAYING IN BED WITH EYES CLOSED. NO APPARENT DISTRESS, RESPIRATIONS REGULAR AND UNLABORED. CALL LUI REMAINS WITHIN REACH.
--- NOTE | 2020-02-03 04:23 | NUR ---
PT APPEARS TO BE SLEEPING COMFORTABLY, LAYING IN BED WITH EYES CLOSED. NO APPARENT DISTRESS, RESPIRATIONS REGULAR AND UNLABORED. CALL LUI REMAINS WITHIN REACH.
[2020-02-03 07:46] VITALS: BP 132/68
--- NOTE | 2020-02-03 07:46 | NUR ---
PT SITTING IN BED. A&O X3. NO DISTRESS NOTED. PT DENIES ANY PAIN AT THIS TIME. DRESSING TO RT HIP IN PLACE, CDI. IS DEVICE AT BEDSIDE, PT DEMONSTRATED PROPER USE OF DEVICE WITH LITTLE INTEREST IN PREFORMING ACTIVITY. EXPLAINED TO PT IMPORTANCE OF THE DEVICE'S USE. GOAL SET AT 1500 ML, ACHIEVING ONLY 1000ML X8 REPITITIONS. PT INFORMED THE IMPORTANCE OF GETTING OUT OF BED, WITH GOAL OF WALKING UP TO SIT IN THE RECLINER. PT AGREEABLE. PUREWICK IN PLACE WITH CLEAR YELLOW URINE NOTED. ASSESSMENT COMPLETED. DISCUSSED POC. CALL LIGHT IN REACH. CONTINUE TO MONITOR.
--- NOTE | 2020-02-03 08:10 | NUR ---
DR PALMER AND Blane SAMUEL AT BEDSIDE DISCUSSING POC
--- NOTE | 2020-02-03 09:05 | NUR ---
NAHID PT AT BEDSIDE
--- NOTE | 2020-02-03 10:26 | NUR ---
Entered the patient's room multiple times to attempt therapy. Initially she agreed and moved to the EOB. She then requested the DUMP TRUCK OPERATOR. I returned later and she agreed to bed exercises including APs, heel slides and isometric quad and gluteal sets as well as right hip ER x 20 reps each. She refused further intervention Am Pac score is 14 indicating she would do well with home health upon DC as apparently she has begun transferring bed to chair on her own.
--- NOTE | 2020-02-03 11:16 | NUR ---
PT LAYING IN BED READING A BOOK. NO DISTRESS NOTED. CALL LIGHT IN REACH. CONTINUE TO MONITOR.
[2020-02-03 15:00] VITALS: BP 103/65
--- NOTE | 2020-02-03 17:27 | NUR ---
PT SITTING IN BED. NO NEEDS AT THIS TIME. CALL LIGHT IN REACH. CONTINUE TO MONITOR.
--- NOTE | 2020-02-03 19:43 | NUR ---
PATIENT RESTING IN BED AT THIS TIME-AWAKE ALERT AND ORIENTEDX3. PATIENT WITH NO COMPLAINTS AT THIS TIME. PUREWICK IN PL [place] AND DRAINING YELLOW URINE,. SALINE LOCK TO LAC INTACT. ABD PILLOW IN PLACE. DRESSING TO RIGHT HIP CDI AT THIS TIME. ENCOURAGED U SE OF IS Q1H WHILE AWAKE. SAFETY PRECAUTIONS RFFEINFORCED. CALL LIGHT IN REACH. WILL CONT TO MONITOR.
[2020-02-03 20:00] VITALS: BP 125/61
--- NOTE | 2020-02-04 00:14 | NUR ---
PATIENT APPEARS SLEEPING AT THIS TIME-EYES CLOSED AND POSITIONED ON LEFT SIDE. RESPS ARE EVEN AND UNLABORED. BSC EMPTIED FOR MODERATE AMT OF LIGHT BROWN WATER. NPO FOR PROCEDURE IN AM. IVF PATENT AND INFUSING VIA LAC AT 80CC/HR. CALL LIGHT IN REACH. WILL CONT TO MONITOR.
--- NOTE | 2020-02-04 00:17 | NUR ---
PATIENT APPEARS SLEEPING SITTING UP IN THE BED WITH EYES CLOSED. RESPS ARE EVEN AND UNLABORED. PUREWICK IN PLACE AND DRAINING YELLOW URINE. CALL LIGHT IN REACH. WILL CONT TO MONITOR.
[2020-02-04 04:00] VITALS: BP 109/66
--- NOTE | 2020-02-04 04:14 | NUR ---
PATIENT SITTING UP IN BED LOOKING AT SOME PAPERWORK IN BED. IV SITE TO LEFT WRIST REMOVED-OUTDATED WITH CATH INTACT. PATIENT IS NOT RECIEVING ANY MEDS OR IVF AT THIS TIME. PUREWICK REMAINS IN PLACE DRAINING Y ELLOW URINE. DRESSING TO RIGHT HIP REMAINS CDI. SAFETY PRECAUTIONS REINFORCED. CALL LIGHT IN REACH. WILL CONT TO MONITOR.
[2020-02-04 06:57] VITALS: BP 106/66
--- NOTE | 2020-02-04 06:57 | NUR ---
PT SITTING IN BED READING A BOOK. A&O. PT DENIES ANY PAIN AT THIS TIME. RT HIP DRESSING CDI. PUREWICK IN PLACE TO SUCTION WITH CLEAR YELLOW URINE NOTED. IS DEVICE AT BEDSIDE, GOAL CONTINUES TO BE 1500, PT ACHIEVING 1000ML, SHOWS LITTLE INTEREST IN ACTIVITY. ASSESSMENT COMPLETED. DISCUSSED POC. CALL LIGHT IN REACH. CONTINUE TO MONITOR.
--- NOTE | 2020-02-04 08:31 | NUR ---
DR PALMER AND Blane SAMUEL APRN AT BEDSIDE
--- NOTE | 2020-02-04 08:47 | NUR ---
PUREWICK REMOVED. PT OUT OF BED USING WALKER, STEADY GAIT OBSERVED. PT SITTING IN RECLINER. PT TO AMBULATE SHEETS LATER TODAY. CALL LIGHT PLACED WITHIN REACH. CONTINUE TO MONITOR.
--- NOTE | 2020-02-04 10:36 | NUR ---
PT note Went into this patients room x3 this morning. She initially refused stating she was busy. She did this x2 . She then agreed to get OOB but jv with female staff as she was transferring to the [facility] [place] [facility]. She demonstrated SBA with transfers and bed mobility. She needs increased ambulation and her Am Pac is 11 indicating she would do well with short term rehab to promote independence and decrease her fall risk
[2020-02-04] MEDS ORDERED: ELIQUIS2.5 MG PO (10:42)
--- NOTE | 2020-02-04 12:00 | NUR ---
PT SITTING IN RECLINER READING BOOK. NO DISTRESS NOTED. CALL LIGHT IN REACH. CONTINUE TO MONITOR.
[2020-02-04 15:37] VITALS: BP 95/61
--- NOTE | 2020-02-04 17:40 | NUR ---
PT SITTING IN RECLINER READING A BOOK. NO NEEDS AT THIS TIME. CALL LIGHT IN REACH. CONTINUE TO MONITOR.
[2020-02-04 20:00] VITALS: BP 98/62
--- NOTE | 2020-02-04 20:05 | NUR ---
PATIENT SITTING UP IN CHAIR AT THIS TIME-AWAKE ALERT AND ORIENTEDX3. PATIENT WITH NO COMPLAINTS AT THIS TIME. DRESSING TO RIGHT HIP CDI AT THIS TIME. CALL LIGHT IN REACH. WILL CONT TO MONITOR.
--- NOTE | 2020-02-04 20:39 | NUR ---
PATIENT REMAINS UP IN CHAIR, REFUSED TO TAKE HER SEROQUEL POR PERICOLACE AGAIN TONIGHT. PATIENT ENCOURAGED TO USE IS INSTRUCTED AND ABLE TO USE THE DEVICE INSTRUCTED. CALL LIGHT IN REACH. WILL CONT TO MONITOR.
--- NOTE | 2020-02-05 00:21 | NUR ---
PATIENT REMAINS UP IN THE CHAIR PER PATIENT REQUEST. PATIENT STATES THAT THE IV PUMP HAS BEEN PEEPING ALL NIGHT AND PLEASE SHUT IT OFF. IV PUMP IS OFF AND NOT PEEPING AT THIS TIME. IV PUMP REMOVED FROM THE ROOM. PATIENT HASN'T HAD ANY IV MEDS OR FLUID FOR DAYS. PATIENT CONT TO HAVE AUDIO HALLUCINATIONS REGUARDING THE BEEPING. ATTEMPTS TO REASON WITH PATIENT NOT SUCCESSFUL. SAFETY PRECAUTIONS REINFORCED. CALL LIGHT IN REACH. WILL CONT TO MONITOR.
[2020-02-05 04:00] VITALS: BP 100/69
--- NOTE | 2020-02-05 04:15 | NUR ---
PATIENT MIN ASSIST TO BSWC TO VOID-PATIENT IS SLOW BUT STEADY USING THE WALKER. NO FURTHER PEEPING IN THE ROOM SAFETY PRECAUTIONS REINFORCED. CALL LIGHT IN REACH. WILL CONT TO MONITOR,
[2020-02-05 06:03] LABS: MEAN CELL VOLUME 94.9 fL CALC (80.0-100.0); MEAN CORPUSCULAR HGB 29.3 pG CALC (26.0-32.0); MEAN CORPUSCULAR HGB CONC 30.9 g/dL CAL (32.0-36.0); RED BLOOD COUNT 3.69 mill/uL (4.20-5.60); RED CELL DISTRI WIDTH 14.4 % (11.5-15.5)
[2020-02-05 06:12] LABS: ANION GAP 11 (6-22 (CALC)); BUN 18 mg/dL (8-23); BUN/CREATININE RATIO 25 (12-20 (CALC)); CARBON DIOXIDE 27 mmol/l (22-30); CHLORIDE 102 mmol/l (95-108); CREATININE 0.7 mg/dL (0.5-1.0); GFR > 60 ML/MIN (>=60 (CALC)); GFR FOR AFR.AMER. > 60 ML/MIN (>=60 (CALC)); SODIUM 135 mmol/l (137-146)
[2020-02-05 06:13] LABS: POTASSIUM 4.8 mmol/l (3.5-5.1)
[2020-02-05 06:15] LABS: HEMOGLOBIN 10.8 g/dl (12.0-16.0)
[2020-02-05 07:15] VITALS: BP 110/60
--- NOTE | 2020-02-05 07:15 | NUR ---
PATIENT SITTING UP IN CHAIR AT THIS TIME DENIES ANY NEEDS AND OR PAIN. PATIENT HIP DRESSING RIGHT SIDE DRY AND INTACT. CALL LIGHT WITHIN REACH.
--- NOTE | 2020-02-05 11:32 | NUR ---
PT note Patient is already OOB with nursing She is able to perform ER exercises and isometrics as before. I reviewed hip precautions with her and she voices understanding. She is able to sit to stand independently and is able to walk in room with min assist of 1 and FWW with a step 2 gait. She is agreeable to go to short term rehab to improve independence and decrease her fall risk. Am Pac score is 12-13 and improving. She is in better spirits today and appears ready to tackle rehab
--- NOTE | 2020-02-05 12:45 | NUR ---
PATIENT SITTING IN CHAIR IN ROOM DENIES ANY NEEDS AT THIS TIME.
[2020-02-05 15:40] VITALS: BP 101/64
--- NOTE | 2020-02-05 16:15 | NUR ---
PATIENT SITTING UP IN CHAIR READING AT THIS TIME. PATIENT DENIES ANY PAIN AND WHEN ASKED TO CHANGE HER HIP DRESSING PATIENT STATED "IT DOESN'T NEED CHANGING THEY JUST DID IT". DRESSING IS DRY AND INTACT AT THIS TIME. CALL LIGHT IS WITHIN REACH SIDERAIL UP X 2
[2020-02-05 19:12] VITALS: BP 122/70
--- NOTE | 2020-02-05 21:28 | NUR ---
PT FOUND SITTING ON BSC, ASSISTED HER BACK TO RECLINER. SHE STATED THAT THE DIRECTOR GLOBAL DEVELOPMENT HAD ASSISTED HER TO THE BSC AND SHE HAD NOT CALLED HER BACK YET. PT TRANSFERRED WELL USING WALKER AND STANDBY ASSISTANCE. 300CC OF CLEAR YELLOW URINE EMPTIED AT THIS TIME. ASSESSMENT COMPLETED AND PT MEDICATED ORDERS PROVIDE. SHE REFUSED STOOL SOFTENER, REPORTING LARGE AMOUNT OF STOOL OUTPUT ON MONDAY OF THIS WEEK 02/01 AND 1X MODERATE AMOUNT OF STOOL OUTPUT YESTERDAY ON THE . LUNG SOUNDS ARE CLEAR. DRESSING TO R.HIP IS CDI, REFUSED DRESSING CHANGE AT THIS TIME. WILL ATTEMPT AT A LATER TIME WHEN SHE IS IN THE BED FOR POSITIONING FOR ADEQUATE ACCESS TO CHANGE DRESSING. PT DENIED ANY NEED FOR SNACK OR DRINK OTHER THAN THE WATER ON BST, I ENCOURAGED HER TO CALL NEEDS ARISE. CALL LIGHT IN HAND.
--- NOTE | 2020-02-06 01:18 | NUR ---
PT SITTING IN RECLINER ASLEEP. NO S/O DISTRESS NOTED. CALL LIGHT AT SIDE.
--- NOTE | 2020-02-06 02:08 | NUR ---
PT IS UPRIGHT IN RECLINER ASLEEP, NO S/O DISTRESS NOTED AT THIS TIME.
[2020-02-06 03:58] VITALS: BP 117/73
--- NOTE | 2020-02-06 04:17 | NUR ---
ASSISTED PT FROM BSC TO RECLINER. DENIED ANY OTHER NEEDS AT THIS TIME. PT TOLERATED AMBULATING WELL USING WALKER AND 1X ASSIST.
[2020-02-06 07:15] VITALS: BP 128/80
--- NOTE | 2020-02-06 07:15 | NUR ---
PATIENT SITTING UP IN CHAIR AT THIS TIME. R HIP DRESSING DRY AND INTACT. PATIENT ADVISED REGARDING DISCHARGE AND PATIENT STATED "I GUESS I HAVE TO GO". PATIENT EDUCATED ON THE D/C PROCESS AND PATIENT VERBALIZED AGREEMENT AND UNDERSTANDING. CALL LIGHT IS WITHIN REACH NO OTHER NEEDS NEEDED AT THIS TIME.
--- NOTE | 2020-02-06 09:47 | NUR ---
RHIP DRESSING CHANGED AT THIS, NO INCISION LINE WELL APPROXIMATED AND NO SIGNS OF SURIGAL SITE INFECTION NOTED AT THIS TIME. PATIENT BEING D/C'D AT THIS TIME. PATIENT GOING TO [facility]. PATIENT AWARE OF D/C AND IS
--- NOTE | 2020-02-06 10:09 | NUR ---
Discharge instructions given. Patient verbalizes understanding of same. Discharged in stable condition via Medical Transport to [facility] with *Other. All belongings sent with pt. REPORT CALLED TO ANGEL LUIS BERGMAN AT [facility] AT THIS TIME.
== END 2020-02-06 10:09 | DRG 522 ==
LOC: MS2 01-27 10:48 → OR 01-27 15:45 → MS2 02-06 10:09
PROVIDERS: Nurse Practitioner; ADMIT Internal Medicine; ATTEND Orthopaedic Surgery
PROC: 0SR901A Replacement of Right Hip Joint with Metal Synthetic Substitute, Uncemented, Open Approach (ICD-10-PCS; principal; 2020-01-27)
DX: S72.041A Displaced fracture of base of neck of right femur, initial encounter for closed fracture (principal); E87.5 Hyperkalemia; M17.11 Unilateral primary osteoarthritis, right knee; F22 Delusional disorders; F43.23 Adjustment disorder with mixed anxiety and depressed mood; R53.1 Weakness; W19.XXXA Unspecified fall, initial encounter; Z79.01 Long term (current) use of anticoagulants; Z86.718 Personal history of other venous thrombosis and embolism; Z85.828 Personal history of other malignant neoplasm of skin
CPT/HCPCS: C1713; J0131; J2710